=== PATIENT | female | born 1970 | race Caucasian/White ===

== ENCOUNTER 2019-09-14 19:59 | Emergency (ER) | payer SELFPAY ==
[~2019-09-14 19:59] MED LIST: Iopamidol-370 76% 500 ML 1 ML ONE
[2019-09-14 21:20] LABS: Mean Corpuscular HGB CONC 32.6 g/dL (32.0-36.0); Mean Corpuscular Hemoglobin 30.5 pg (27.0-31.0); Mean Corpuscular Volume 93.5 fL (78.0-98.0); Mean Platelet Volume 7.3 fL (7.4-10.4); Platelet Count 296 thou/uL (130-400); RBC Distribution Width 12.5 % (11.5-14.5); Red Blood Cell (RBC) Count 4.26 mill/uL (4.20-5.40); White Blood Cell (WBC) Count 9.4 thou/uL (4.8-10.8)
[2019-09-14 21:43] LABS: ALT (SGPT) 17 U/L (8-55); AST (SGOT) 16 U/L (5-34); Albumin 3.6 g/dL (3.5-5.0); Alkaline Phosphatase 94 U/L (40-110); Anion Gap 12 mmol/L (10-20); BUN (Urea Nitrogen) 22 mg/dL (7.0-18.7); Bilirubin, Total Less than 0.2 mg/dL (0.2-1.2); Calc. Creatinine Clearance 0 mL/min (70-130); Calcium 8.8 mg/dL (7.8-10.44); Carbon Dioxide 23 mmol/L (22-29); Chloride 106 mmol/L (98-107); Estimated GFR-MDRD 74; Glucose 102 mg/dL (70-105); Lipase 33 U/L (8-78); Potassium 3.8 mmol/L (3.5-5.1); Protein, Total 6.6 g/dL (6.0-8.3); Sodium 137 mmol/L (136-145)
[2019-09-14 21:45] LABS: Bacteria/HPF None Seen HPF (None Seen); Bilirubin Negative (Negative); Blood, Urine Trace (Negative); Clarity Clear (Clear); Glucose, Urine (Dipstick) Normal (Negative); Leukocyte Negative Leu/uL (Negative); Nitrite Negative (Negative); Protein, Urine (Dipstick) Negative (Neg-Trace); RBC/HPF 0-3 HPF (0-3); Squamous Epithelial 0-3 HPF (0-3); Urobilinogen Normal mg/dL (Less than 2)
[2019-09-14 21:54] LABS: Band 16 % (5-11); Eosinophils 1 % (0-10); Lymphocytes 38 % (21-51); MDiff Complete? YES; Monocytes 13 % (0-10); Neutrophil 31 % (42-75); Platelet Morphology Comment Appears Adequate; RBC Morphology Normal; Reactive Lymphocytes 1 % (0-10)
--- NOTE | 2019-09-15 10:38 | ULT ---
TRANSABDOMINAL TRANSVAGINAL PELVIC UTLRASOUND: INDICATION: Pelvic pain with pain predominantly in the left lower quadrant with pain upon urination and constipat ion. TECHNIQUE: Morales scale, color Doppler, and spectral Doppler images were obtained of the pelvis via a transabdomin al transvaginal approach. FINDINGS: The uterus measures 7.9 x 4.3 x 6.1 cm. No focal uterine mass is evident. Endometrial stripe was 1. 2 cm. The right ovary measured 2.8 x 2.4 x 3.2 cm. The left ovary measures 2.8 x 3.6 x 2.2 cm. Normal mel w is seen to both ovaries. Mild free fluid is seen within the cul-de-sac. In the region in the inguinal regions bilaterally, there are small nonpathologic-appearing lymph node s. IMPRESSION: 1. No definite acute sonographic abnormality within the pelvis. 2. Endometrial stripe of 1.2 cm, upper limits of normal for a premenopausal female. Recommend corre lation for phase of menstruation. 3. Nonspecific small amount of free fluid in the pelvis can be physiologic in nature. POS: BH
--- NOTE | 2019-09-15 10:53 | CT ---
CT OF THE PELVIS WITH IV CONTRAST: INDICATION: A 49-YEAR-OLD FEMALE WITH LEFT LOWER QUADRANT ABDOMINAL PAIN AND LEFT LOWER QUADRANT MASS FOR THE LAS T FEW WEEKS WITH WORSENING TODAY. FINDINGS: Unopacified large and small bowel are unremarkable-appearing. There is a normal appendix in the righ t lower quadrant. There is an involuting cyst within the right adnexa measuring 1.3 cm. This was no t well seen on the comparison pelvic ultrasound performed earlier at 9:13 p.m. Visualized aspects of the left adnexa, uterus, bladder, rectum, and perirectal soft tissues are unremarkable-appearing. T here is mild free fluid in the pelvis. There are mild vascular calcifications involving the abdominopelvic vasculature. No definite acute osseous abnormality is evident. No overt lymphadenopathy is evident. IMPRESSION: 1. Suspected involuting cyst within the right adnexa. 2. Mild free fluid in the pelvis may be physiologic. 3. No definite lymphadenopathy or visible pelvic mass identified. 4. Normal appendix. POS: BH
== END 2019-09-15 01:11 | disposition home or self-care (01) ==
LOC: MERGE 19:59 → ERS 19:59
DX: R19.04 Left lower quadrant abdominal swelling, mass and lump (principal); F17.210 Nicotine dependence, cigarettes, uncomplicated
CPT/HCPCS: 36415; 72193; 76856; 80053; 81003; 81015; 83690; 85025; 87086; Q9967

== ENCOUNTER 2022-08-29 21:49 | Observation (INO) | payer OTHER, SELFPAY ==
[~2022-08-29 21:49] MED LIST changes: -Iopamidol-370 76% 500 ML 1 ML ONE; +Iopamidol-370 76% 500 ML MDV (1 ML CHARGE) ONE
[2022-08-29 22:23] LABS: #Eosinphils 0.2 thou/uL (0.0-0.7); #Lymphocytes 1.6 thou/uL (1.20-3.40); #Neutrophils 8.6 thou/uL (1.40-6.50); %Basophils 0.4 % (0.0-1.0); %Eosinophils 1.3 % (0.0-10.0); %Lymphocytes 14.3 % (21.0-51.0); %Monocytes 9.1 % (0.0-10.0); %Neutrophils 74.9 % (42.0-75.0); Hemoglobin 12.6 g/dL (12.0-16.0); Mean Corpuscular HGB CONC 34.1 g/dL (32.0-36.0); Mean Corpuscular Hemoglobin 31.2 pg (27.0-31.0); Mean Corpuscular Volume 91.5 fl (78.0-98.0); Mean Platelet Volume 7.2 fL (7.4-10.4); Platelet Count 311 10x3/uL (130-400); Red Blood Cell (RBC) Count 4.03 mill/uL (4.20-5.40); White Blood Cell (WBC) Count 11.4 10x3/uL (4.8-10.8)
[2022-08-29 22:44] LABS: ALT (SGPT) 15 U/L (8-55); AST (SGOT) 19 U/L (5-34); Albumin 3.8 g/dL (3.5-5.0); Alkaline Phosphatase 76 U/L (40-110); Anion Gap 15 mmol/L (10-20); BUN (Urea Nitrogen) 6 mg/dL (7.0-18.7); Bilirubin, Total 0.2 mg/dL (0.2-1.2); Calc. Creatinine Clearance 0 mL/min (70-130); Calcium 8.5 mg/dL (7.8-10.44); Carbon Dioxide 21 mmol/L (22-29); Chloride 100 mmol/L (98-107); Estimated GFR 102; Globulin 2.9 g/dL (2.4-3.5); Glucose 128 mg/dL (70-105); Potassium 3.5 mmol/L (3.5-5.1); Protein, Total 6.7 g/dL (6.0-8.3); Sodium 132 mmol/L (136-145)
[2022-08-29] MEDS ORDERED: Morphine 4 MG/ML VIAL ONE (22:48)
[2022-08-29 23:06] LABS: CKMB 5.4 ng/mL (0-6.6)
[2022-08-30] MEDS ORDERED: Nitroglycerin 0.4 MG TAB 1 EACH ONE (00:28)
[2022-08-30] MEDS ORDERED: Aspirin Chewable 81 MG TAB ONE (00:28)
[2022-08-30] MEDS ORDERED: Thiamine HCl 100 MG, Folic Acid 1 MG in Dextrose 5 %-0.45 % NaCl 1,000 ML IVPB SCH (00:30)
[2022-08-30 00:55] LABS: Bilirubin Negative (Negative); Blood, Urine Negative (Negative); Clarity Clear (Clear); Glucose, Urine (Dipstick) Normal (Negative); Ketone, Urine Negative (Negative); Leukocyte Negative Leu/uL (Negative); Nitrite Negative (Negative); Protein, Urine (Dipstick) Negative (Neg-Trace); Urobilinogen Normal mg/dL (Less than 2); pH, Urine 7.5 (5.0-9.0)
[2022-08-30] MEDS ORDERED: Acetaminophen 325 MG TAB PO PRN (01:18)
[2022-08-30] MEDS ORDERED: Nitroglycerin 2% Ointment 1 INCH/1 GM Packet ONE (01:18)
[2022-08-30] MEDS ORDERED: Nitroglycerin 0.4 MG TAB (25 Tab Bottle) SL PRN (01:18)
[2022-08-30] MEDS ORDERED: Ketorolac Tromethamine 30 MG/ML VIAL ONE (01:18)
[2022-08-30] MEDS ORDERED: Ondansetron PF 4 MG/2 ML Vial IVP PRN (01:18)
[2022-08-30] MEDS ORDERED: Morphine 4 MG/ML VIAL SLOW IVP PRN (01:53)
[2022-08-30 02:14] LABS: Troponin I 0.122 ng/mL (< 0.028)
[2022-08-30 02:15] LABS: Amphetamine Detected (NotDetected); Barbiturates Screen Not Detected (NotDetected); Benzodiazepine Screen Not Detected (NotDetected); Cocaine Metabolite Screen Not Detected (NotDetected); Methadone Not Detected (NotDetected); Methamphetamine Detected (NotDetected); Opiate Screen Detected (NotDetected); Oxycodone Screen Not Detected (NotDetected); Phencyclidine (PCP) Not Detected (NotDetected); THC/Cannabinoid Screen Detected (NotDetected); Tricyclic Screen Not Detected (NotDetected)
[2022-08-30] MEDS ORDERED: Labetalol HCl 100 MG/20 ML VIAL SLOW IVP SCH ×2 (02:30→03:30)
[2022-08-30 02:33] VITALS: BMI 23.8
[2022-08-30] MEDS ORDERED: Labetalol HCl 100 MG/20 ML VIAL ONE (02:39)
[2022-08-30] MEDS ORDERED: HYDROmorphone 0.5 MG/0.5 ML SYRINGE ONE (02:39)
[2022-08-30] MEDS ORDERED: HYDROmorphone 0.5 MG/0.5 ML SYRINGE SLOW IVP SCH (02:45)
[2022-08-30] MEDS ORDERED: niCARdipine 25 MG/10 ML SDV ONE (04:12)
[2022-08-30] MEDS ORDERED: niCARdipine 25 MG in Sodium Chloride 0.9% 250 ML 250 ML IVPB SCH ×2 (04:15→04:30)
[2022-08-30 05:34] LABS: #Basophils 0.1 thou/uL (0.0-0.2); #Eosinphils 0.3 thou/uL (0.0-0.7); #Lymphocytes 2.3 thou/uL (1.20-3.40); #Monocytes 1.1 thou/uL (0.11-0.59); #Neutrophils 6.3 thou/uL (1.40-6.50); %Basophils 0.6 % (0.0-1.0); %Eosinophils 2.9 % (0.0-10.0); %Lymphocytes 23.3 % (21.0-51.0); %Monocytes 11.1 % (0.0-10.0); %Neutrophils 62.2 % (42.0-75.0); Mean Corpuscular Hemoglobin 30.3 pg (27.0-31.0); Mean Corpuscular Volume 91.7 fl (78.0-98.0); Mean Platelet Volume 7.5 fL (7.4-10.4); Platelet Count 323 10x3/uL (130-400); Red Blood Cell (RBC) Count 4.31 mill/uL (4.20-5.40)
[2022-08-30 05:47] LABS: Cardiac Risk 2.4 (Less than 4.5)
[2022-08-30 05:52] LABS: Troponin I 0.135 ng/mL (< 0.028)
[2022-08-30 05:53] LABS: Magnesium 1.7 mg/dL (1.6-2.6)
[2022-08-30 05:54] LABS: Anion Gap 10 mmol/L (10-20); BUN (Urea Nitrogen) 4 mg/dL (7.0-18.7); Calc. Creatinine Clearance 103 mL/min (70-130); Calcium 8.8 mg/dL (7.8-10.44); Carbon Dioxide 26 mmol/L (22-29); Chloride 100 mmol/L (98-107); Estimated GFR 106; Glucose 128 mg/dL (70-105); Potassium 3.1 mmol/L (3.5-5.1); Sodium 133 mmol/L (136-145)
[2022-08-30] MEDS ORDERED: hydrALAZINE 20 MG/ML VIAL ONE (06:00)
[2022-08-30] MEDS ORDERED: hydrALAZINE 20 MG/ML VIAL SLOW IVP SCH (06:00)
[2022-08-30 06:02] LABS: Hemoglobin A1c 5.1 % (4.0-6.0)
[2022-08-30] MEDS ORDERED: Magnesium Sulfate 2 GM in Sodium Chloride 0.9% 100 ML IVPB SCH (07:30)
[2022-08-30] MEDS ORDERED: Potassium Chloride 20 MEQ TAB PO SCH ×2 (07:30→17:00)
[2022-08-30] MEDS ORDERED: Magnesium 2 GM/50 ML(in water) 2 GM in Premix Bag 1 BAG IVPB SCH (07:30)
[2022-08-30] MEDS ORDERED: cloNIDine 0.1 MG TAB PO PRN ×2 (08:04→09:15)
[2022-08-30] MEDS ORDERED: Electrolyte Replacement Protocol 1 EACH FS SCH (08:15)
[2022-08-30] MEDS ORDERED: Folic Acid 1 MG TAB ONE (08:25)
[2022-08-30] MEDS ORDERED: Amlodipine 5 MG TAB ONE (08:25)
[2022-08-30] MEDS ORDERED: Magnesium 2 GM/50 ML BAG (IN WATER) ONE (08:25)
[2022-08-30] MEDS ORDERED: Multivitamin W/ Minerals 1 TAB ONE (08:25)
[2022-08-30] MEDS ORDERED: Potassium Chloride 20 MEQ TAB ONE (08:25)
[2022-08-30] MEDS ORDERED: Lisinopril 10 MG TAB PO SCH (09:00)
[2022-08-30] MEDS ORDERED: Amlodipine 5 MG TAB PO SCH (09:00)
[2022-08-30] MEDS ORDERED: Lisinopril 20 MG TAB PO SCH (09:00)
[2022-08-30 09:08] LABS: Phosphorus 2.8 mg/dL (2.3-4.7)
[2022-08-30] MEDS ORDERED: Lisinopril 5 MG TAB PO SCH (09:15)
[2022-08-30] MEDS ORDERED: NIFEdipine XL 30 MG TAB PO SCH (09:15)
[2022-08-30] MEDS ORDERED: Acetaminophen 325 MG TAB ONE (09:35)
[2022-08-30] MEDS ORDERED: cloNIDine 0.1 MG TAB ONE (10:07)
[2022-08-30] MEDS: Folic Acid 1 MG TAB PO SCH (10:11)
[2022-08-30] MEDS: Polyethylene Glycol 3350 17 GM Packet PO SCH (10:11)
[2022-08-30] MEDS: Docusate 100 MG CAP PO SCH ×2 (10:11→21:24)
[2022-08-30] MEDS: Multivit, Therapeutic 1 TAB PO SCH (10:11)
[2022-08-30] MEDS ORDERED: Ibuprofen 200 MG TAB PO SCH (18:45)
[2022-08-30] MEDS: Senokot S 8.6-50 MG TAB PO SCH (21:24)
[2022-08-30] MEDS: Lisinopril 5 MG TAB PO SCH (21:24)
[2022-08-31 05:27] LABS: #Basophils 0.1 thou/uL (0.0-0.2); #Eosinphils 0.4 thou/uL (0.0-0.7); #Lymphocytes 2.1 thou/uL (1.20-3.40); #Monocytes 1.1 thou/uL (0.11-0.59); #Neutrophils 4.1 thou/uL (1.40-6.50); %Basophils 0.9 % (0.0-1.0); %Eosinophils 4.8 % (0.0-10.0); %Lymphocytes 27.4 % (21.0-51.0); %Monocytes 14.2 % (0.0-10.0); %Neutrophils 52.7 % (42.0-75.0); Hemoglobin 14.8 g/dL (12.0-16.0); Mean Corpuscular HGB CONC 34.2 g/dL (32.0-36.0); Mean Corpuscular Hemoglobin 31.3 pg (27.0-31.0); Mean Corpuscular Volume 91.6 fl (78.0-98.0); Mean Platelet Volume 7.6 fL (7.4-10.4); Platelet Count 310 10x3/uL (130-400); RBC Distribution Width 13.2 % (11.5-14.5); Red Blood Cell (RBC) Count 4.74 mill/uL (4.20-5.40); White Blood Cell (WBC) Count 7.8 10x3/uL (4.8-10.8)
[2022-08-31 06:20] LABS: Phosphorus 3.8 mg/dL (2.3-4.7)
[2022-08-31 06:40] LABS: Anion Gap 13 mmol/L (10-20); BUN (Urea Nitrogen) 13 mg/dL (7.0-18.7); Calc. Creatinine Clearance 78 mL/min (70-130); Calcium 8.9 mg/dL (7.8-10.44); Carbon Dioxide 22 mmol/L (22-29); Chloride 104 mmol/L (98-107); Estimated GFR 80; Glucose 127 mg/dL (70-105); Magnesium 1.9 mg/dL (1.6-2.6); Potassium 3.7 mmol/L (3.5-5.1); Sodium 135 mmol/L (136-145)
[2022-08-31 06:44] LABS: Troponin I 0.273 ng/mL (< 0.028)
[2022-08-31 07:52] VITALS: BP 164/92; TEMP 98
[2022-08-31] MEDS: Lisinopril 5 MG TAB PO SCH (07:56)
[2022-08-31] MEDS: Polyethylene Glycol 3350 17 GM Packet PO SCH (07:56)
[2022-08-31] MEDS: Multivit, Therapeutic 1 TAB PO SCH (07:57)
[2022-08-31] MEDS: Senokot S 8.6-50 MG TAB PO SCH (07:57)
[2022-08-31] MEDS: Folic Acid 1 MG TAB PO SCH (07:57)
[2022-08-31] MEDS: Docusate 100 MG CAP PO SCH (07:58)
[2022-08-31] MEDS ORDERED: Magnesium 2 GM/50 ML(in water) 2 GM in Premix Bag 1 BAG IVPB SCH (08:00)
[2022-08-31] MEDS ORDERED: Aspirin 81 mg Enteric Coated Tablet PO SCH (09:00)
[2022-08-31] MEDS ORDERED: NIFEdipine XL 30 MG TAB PO SCH (09:00)
== END 2022-08-31 12:15 | disposition home or self-care (01) ==
LOC: ERS 21:49 → ERHOLD 08-30 01:08 → 2NO 08-30 02:16 → ERHOLD 08-30 02:29 → CCU 08-30 07:14 → 2SW 08-30 15:14
PROVIDERS: ADMIT Internal Medicine; ATTEND Internal Medicine
DX: R07.82 Intercostal pain (principal); K59.01 Slow transit constipation; M79.602 Pain in left arm; F15.10 Other stimulant abuse, uncomplicated; F12.10 Cannabis abuse, uncomplicated; F11.10 Opioid abuse, uncomplicated; I10 Essential (primary) hypertension; F17.210 Nicotine dependence, cigarettes, uncomplicated; J98.11 Atelectasis; K40.90 Unilateral inguinal hernia, without obstruction or gangrene, not specified as recurrent; I08.1 Rheumatic disorders of both mitral and tricuspid valves; Z88.5 Allergy status to narcotic agent
CPT/HCPCS: 36415; 71045; 71260; 74177; 80048; 80053; 80061; 80306; 81003; 82553; 83036; 83735; 84100; 84484; 85025; 85652; 86140; 93005; 93306; 96374; 96375; G0378; J0360; J1170; J1885; J2270; J3411; J3475; J7042; Q9967

== ENCOUNTER 2022-12-10 15:17 | Outpatient (CLI) | payer OTHER ==
[2022-12-10 16:45] LABS: #Basophils 0.1 10x3/uL (0.0-0.2); #Eosinphils 0.4 10x3/uL (0.0-0.5); #Monocytes 1.3 10x3/uL (0.0-1.1); #Neutrophils 4.1 10x3/uL (1.5-8.4); %Basophils 0.6 % (0.0-2.0); %Eosinophils 4.3 % (0.0-6.0); %Lymphocytes 28.7 % (18.0-47.0); %Monocytes 15.8 % (0.0-10.0); %Neutrophils 50.5 % (40.0-75.0); Hematocrit 36.9 % (34.9-44.5); Hemoglobin 12.1 g/dL (12.0-15.5); Mean Corpuscular HGB CONC 32.8 g/dL (32.0-36.0); Mean Corpuscular Volume 88.5 fl (81.6-98.3); Mean Platelet Volume 10.8 fl (7.4-10.4); Platelet Count 344 10x3/uL (150-450); RBC Distribution Width 15.1 % (11.5-14.5); Red Blood Cell (RBC) Count 4.17 10x6/uL (3.90-5.03); White Blood Cell (WBC) Count 8.2 10x3/uL (3.5-10.5)
[2022-12-10 17:14] LABS: ALT (SGPT) 16 U/L (8-55); AST (SGOT) 19 U/L (5-34); Albumin 3.8 g/dL (3.5-5.0); Alkaline Phosphatase 67 U/L (40-110); Anion Gap 13 mmol/L (10-20); BUN (Urea Nitrogen) 12 mg/dL (7.0-18.7); Bilirubin, Total 0.2 mg/dL (0.2-1.2); Calc. Creatinine Clearance 0 mL/min (70-130); Carbon Dioxide 28 mmol/L (22-29); Chloride 106 mmol/L (98-107); Estimated GFR 65; Globulin 2.8 g/dL (2.4-3.5); Glucose 71 mg/dL (70-105); Potassium 4.1 mmol/L (3.5-5.1); Protein, Total 6.6 g/dL (6.0-8.3); Sodium 143 mmol/L (136-145)
== END 2022-12-10 15:18 | disposition home or self-care (01) ==
LOC: LABBT 15:17
PROVIDERS: ATTEND Surgery
DX: Z01.818 Encounter for other preprocedural examination (principal); K40.20 Bilateral inguinal hernia, without obstruction or gangrene, not specified as recurrent
CPT/HCPCS: 80053; 85025; 93005; 93010

== ENCOUNTER 2023-01-01 22:53 | Inpatient (IN) | payer OTHER ==
[2023-01-01] MEDS ORDERED: Acetaminophen 500 MG TAB ONE ×2 (23:32→23:34)
[2023-01-02] MEDS ORDERED: Azithromycin 500 MG VIAL ONE (00:17)
[2023-01-02] MEDS ORDERED: cefTRIAXone (ROCEPHIN) 2 GM VIAL ONE (00:17)
[2023-01-02 00:32] LABS: SARS-CoV-2 NAA Rapid Test Not Detected (NotDetected)
[2023-01-02 00:37] LABS: #Basophils 0.1 thou/uL (0.0-0.2); #Eosinphils 0.4 thou/uL (0.0-0.7); #Monocytes 1.1 thou/uL (0.11-0.59); #Neutrophils 4.2 thou/uL (1.40-6.50); %Basophils 0.6 % (0.0-1.0); %Eosinophils 5.4 % (0.0-10.0); %Lymphocytes 28.4 % (21.0-51.0); %Monocytes 14.1 % (0.0-10.0); %Neutrophils 51.3 % (42.0-75.0); Hematocrit 33.2 % (36.0-47.0); Hemoglobin 10.3 g/dL (12.0-16.0); Mean Corpuscular Hemoglobin 28.9 pg (27.0-31.0); Mean Corpuscular Volume 93.3 fl (78.0-98.0); Mean Platelet Volume 10.6 fL (7.4-10.4); Platelet Count 278 10x3/uL (130-400); RBC Distribution Width 14.9 % (11.5-14.5); Red Blood Cell (RBC) Count 3.56 mill/uL (4.20-5.40); White Blood Cell (WBC) Count 8.1 10x3/uL (4.8-10.8)
[2023-01-02 01:00] LABS: ALT (SGPT) 8 U/L (8-55); AST (SGOT) 12 U/L (5-34); Alkaline Phosphatase 70 U/L (40-110); Anion Gap 13 mmol/L (10-20); BUN (Urea Nitrogen) 9 mg/dL (7.0-18.7); Bilirubin, Total 0.3 mg/dL (0.2-1.2); Calc. Creatinine Clearance 0 mL/min (70-130); Calcium 8.6 mg/dL (7.8-10.44); Carbon Dioxide 19 mmol/L (22-29); Chloride 106 mmol/L (98-107); Estimated GFR 100; Globulin 2.9 g/dL (2.4-3.5); Glucose 100 mg/dL (70-105); Potassium 3.1 mmol/L (3.5-5.1); Protein, Total 5.9 g/dL (6.0-8.3); Sodium 135 mmol/L (136-145)
[2023-01-02 01:03] LABS: Troponin I 0.069 ng/mL (< 0.028)
[2023-01-02] MEDS ORDERED: Aspirin Chewable 81 MG TAB ONE (02:01)
[2023-01-02] MEDS ORDERED: Acetaminophen 325 MG TAB PO PRN (04:15)
[2023-01-02] MEDS ORDERED: Ondansetron PF 4 MG/2 ML Vial IVP PRN (04:15)
[2023-01-02] MEDS ORDERED: Ondansetron ODT 4 MG TAB SL PRN (04:15)
[2023-01-02] MEDS ORDERED: Ipratropium/Albuterol 3 ML NEB NEB PRN (04:50)
[2023-01-02 05:08] LABS: Actual Bicarbonate (HCO3a) 21.8 mEq/L (22-28); Base Excess (BEa) -1.8 mEq/L (-2.0 to +3.0); CO2 Tension 32.8 mmHg (35.0-45.0); Calcium, Ionized (arterial) 1.12 mmol/L (1.12-1.30); Carboxyhemoglobin (COHb) 1.1 gm% (0.0-3.0); Hematocrit-ABG 33 % (36.0-47.0); Hemoglobin (Hb) 11.1 g/dL (12.0-16.0); O2 Tension (PaO2), arterial 86.9 mmHg (80.0-100.0); Potassium - ABG Lab 3.29 mmol/L (3.70-5.30)
[2023-01-02 05:10] LABS: Puncture Site RR
[2023-01-02 06:11] VITALS: BMI 23.1
[2023-01-02 06:14] LABS: Troponin I 0.083 ng/mL (< 0.028)
[2023-01-02] MEDS ORDERED: Electrolyte Replacement Protocol 1 EACH FS SCH (06:15)
[2023-01-02] MEDS ORDERED: Furosemide 40 MG/4 ML VIAL SLOW IVP SCH (06:30)
[2023-01-02 06:40] LABS: #Basophils 0.1 thou/uL (0.0-0.2); #Eosinphils 0.3 thou/uL (0.0-0.7); #Monocytes 0.9 thou/uL (0.11-0.59); #Neutrophils 5.1 thou/uL (1.40-6.50); %Basophils 0.6 % (0.0-1.0); %Eosinophils 3.3 % (0.0-10.0); %Lymphocytes 20.5 % (21.0-51.0); %Monocytes 11.4 % (0.0-10.0); %Neutrophils 63.9 % (42.0-75.0); Hematocrit 36.4 % (36.0-47.0); Hemoglobin 11.5 g/dL (12.0-16.0); Mean Corpuscular HGB CONC 31.6 g/dL (32.0-36.0); Mean Corpuscular Hemoglobin 28.6 pg (27.0-31.0); Mean Platelet Volume 10.3 fL (7.4-10.4); Platelet Count 286 10x3/uL (130-400); RBC Distribution Width 14.8 % (11.5-14.5); Red Blood Cell (RBC) Count 4.02 mill/uL (4.20-5.40)
[2023-01-02 06:45] LABS: Mean Corpuscular Volume 90.5 fl (78.0-98.0)
[2023-01-02] MEDS: Potassium Chloride 20 MEQ in Premix Bag 1 BAG IVPB SCH ×2 (06:55→11:03)
[2023-01-02 07:04] LABS: Anion Gap 13 mmol/L (10-20); BUN (Urea Nitrogen) 9 mg/dL (7.0-18.7); Calc. Creatinine Clearance 94 mL/min (70-130); Calcium 8.4 mg/dL (7.8-10.44); Carbon Dioxide 18 mmol/L (22-29); Chloride 108 mmol/L (98-107); Estimated GFR 104; Glucose 106 mg/dL (70-105); Magnesium 1.7 mg/dL (1.6-2.6); Potassium 3.4 mmol/L (3.5-5.1); Sodium 136 mmol/L (136-145)
[2023-01-02] MEDS: Ipratropium/Albuterol 3 ML NEB NEB SCH ×5 (07:57→22:30)
[2023-01-02] MEDS ORDERED: Magnesium 2 GM/50 ML(in water) 2 GM in Premix Bag 1 BAG IVPB SCH (08:00)
[2023-01-02] MEDS ORDERED: Vancomycin 1.5 GRAM/300 ML BAG 1.5 GM in Premix Bag 1 BAG IVPB SCH (08:00)
[2023-01-02] MEDS ORDERED: Aspirin Chewable 81 MG TAB PO SCH (08:13)
[2023-01-02] MEDS ORDERED: dilTIAZem 125 MG in Sodium Chloride 0.9% 100 ML IVPB SCH (09:00)
[2023-01-02] MEDS ORDERED: Cefepime 1 GM in Sodium Chloride 0.9% 100 ML IVPB SCH (09:00)
[2023-01-02] MEDS ORDERED: Iopamidol-370 76% 500 ML MDV (1 ML CHARGE) ONE (10:58)
[2023-01-02] MEDS: Famotidine/PF 20 mg/2ml Vial SLOW IVP SCH ×2 (11:03→20:40)
[2023-01-02] MEDS: Clindamycin 150 MG CAP PO SCH ×3 (11:04→23:50)
[2023-01-02 11:22] LABS: Troponin I 0.073 ng/mL (< 0.028)
[2023-01-02] MEDS: Furosemide 40 MG/4 ML VIAL SLOW IVP SCH (13:27)
[2023-01-02] MEDS ORDERED: dilTIAZem 30 MG TAB PO SCH (13:30)
[2023-01-02 14:34] LABS: Bacteria/HPF None Seen HPF (None Seen); Bilirubin Negative (Negative); Blood, Urine Trace (Negative); CAUTI Indications for Culture Fever or rigors; Clarity Clear (Clear); Glucose, Urine (Dipstick) Normal (Negative); Ketone, Urine Negative (Negative); Leukocyte 25 Leu/uL (Negative); Nitrite Negative (Negative); Protein, Urine (Dipstick) Negative (Neg-Trace); Specific Gravity, Urine 1.009 (1.002-1.036); Squamous Epithelial 0-3 HPF (0-3); Urobilinogen Normal mg/dL (Less than 2); WBC/HPF 0-3 HPF (0-3); pH, Urine 6.5 (5.0-9.0)
[2023-01-02 14:36] LABS: Urine Culture Reflex No No
[2023-01-02 14:41] LABS: Amphetamine Detected (NotDetected); Barbiturates Screen Not Detected (NotDetected); Benzodiazepine Screen Not Detected (NotDetected); Cocaine Metabolite Screen Not Detected (NotDetected); Methadone Not Detected (NotDetected); Methamphetamine Detected (NotDetected); Opiate Screen Not Detected (NotDetected); Oxycodone Screen Not Detected (NotDetected); Phencyclidine (PCP) Not Detected (NotDetected); THC/Cannabinoid Screen Not Detected (NotDetected); Tricyclic Screen Not Detected (NotDetected)
[2023-01-02 14:48] LABS: Legionella Urinary Ag Negative (Negative); Strep pneumo Urine Ag NEGATIVE (NEGATIVE)
[2023-01-02] MEDS: Potassium Bicarbonate/Cit Ac 20 MEQ TAB PO SCH (17:54)
[2023-01-02] MEDS: dilTIAZem 30 MG TAB PO SCH ×2 (17:54→20:40)
[2023-01-02] MEDS ORDERED: Vancomycin 1 GM in Premix Bag 1 BAG IVPB SCH (20:00)
[2023-01-02] MEDS: cefTRIAXone\\ROCEPHIN 2 GM in Sodium Chloride 0.9% 100 ML IVPB SCH (20:42)
[2023-01-02] MEDS: Acetaminophen 325 MG TAB PO PRN (20:42)
[2023-01-03] MEDS: Ipratropium/Albuterol 3 ML NEB NEB SCH ×6 (02:31→22:33)
[2023-01-03 04:07] LABS: #Basophils 0.1 thou/uL (0.0-0.2); #Eosinphils 0.2 thou/uL (0.0-0.7); #Monocytes 1.1 thou/uL (0.11-0.59); #Neutrophils 5.7 thou/uL (1.40-6.50); %Basophils 0.7 % (0.0-1.0); %Eosinophils 2.5 % (0.0-10.0); %Lymphocytes 20.1 % (21.0-51.0); %Monocytes 12.9 % (0.0-10.0); %Neutrophils 63.6 % (42.0-75.0); Hematocrit 36.8 % (36.0-47.0); Hemoglobin 12.4 g/dL (12.0-16.0); Mean Corpuscular HGB CONC 33.7 g/dL (32.0-36.0); Mean Corpuscular Hemoglobin 28.8 pg (27.0-31.0); Mean Platelet Volume 10.3 fL (7.4-10.4); Platelet Count 346 10x3/uL (130-400); RBC Distribution Width 14.7 % (11.5-14.5); Red Blood Cell (RBC) Count 4.31 mill/uL (4.20-5.40); White Blood Cell (WBC) Count 8.9 10x3/uL (4.8-10.8)
[2023-01-03 04:15] LABS: Mean Corpuscular Volume 85.4 fl (78.0-98.0)
[2023-01-03 04:36] LABS: ALT (SGPT) 11 U/L (8-55); AST (SGOT) 12 U/L (5-34); Albumin 3.4 g/dL (3.5-5.0); Alkaline Phosphatase 88 U/L (40-110); Anion Gap 12 mmol/L (10-20); BUN (Urea Nitrogen) 13 mg/dL (7.0-18.7); Bilirubin, Total 0.3 mg/dL (0.2-1.2); Calc. Creatinine Clearance 67 mL/min (70-130); Carbon Dioxide 27 mmol/L (22-29); Chloride 101 mmol/L (98-107); Estimated GFR 69; Globulin 3.2 g/dL (2.4-3.5); Glucose 124 mg/dL (70-105); Potassium 3.2 mmol/L (3.5-5.1); Protein, Total 6.6 g/dL (6.0-8.3); Sodium 137 mmol/L (136-145)
[2023-01-03 05:01] LABS: Magnesium 1.9 mg/dL (1.6-2.6)
[2023-01-03] MEDS: Acetaminophen 325 MG TAB PO PRN ×3 (06:39→21:32)
[2023-01-03] MEDS: Furosemide 40 MG/4 ML VIAL SLOW IVP SCH ×2 (06:39→13:33)
[2023-01-03] MEDS: Clindamycin 150 MG CAP PO SCH (06:39)
[2023-01-03] MEDS ORDERED: Potassium Chloride 20 MEQ TAB PO SCH (06:45)
[2023-01-03] MEDS ORDERED: Magnesium 2 GM/50 ML(in water) 2 GM in Premix Bag 1 BAG IVPB SCH (06:45)
[2023-01-03] MEDS ORDERED: Electrolyte Replacement Protocol FS PRN (06:45)
[2023-01-03] MEDS: Famotidine/PF 20 mg/2ml Vial SLOW IVP SCH ×2 (08:18→21:32)
[2023-01-03] MEDS: Potassium Bicarbonate/Cit Ac 20 MEQ TAB PO SCH ×2 (08:18→16:48)
[2023-01-03] MEDS: dilTIAZem 30 MG TAB PO SCH ×4 (08:18→21:31)
[2023-01-03] MEDS ORDERED: Phenylephrine 10 MG/ML VIAL ONE (08:20)
[2023-01-03] MEDS ORDERED: Azithromycin 250 MG TAB PO SCH ×2 (12:00→13:30)
[2023-01-03] MEDS: cefTRIAXone\\ROCEPHIN 2 GM in Sodium Chloride 0.9% 100 ML IVPB SCH (21:30)
[2023-01-04] MEDS ORDERED: hydrALAZINE 20 MG/ML VIAL SLOW IVP SCH (01:00)
[2023-01-04] MEDS: Metoprolol Tartrate 5 MG/5 ML VIAL IVP PRN (01:04)
[2023-01-04] MEDS: Ipratropium/Albuterol 3 ML NEB NEB SCH ×6 (03:43→21:41)
[2023-01-04] MEDS: Furosemide 40 MG/4 ML VIAL SLOW IVP SCH ×2 (06:43→14:27)
[2023-01-04] MEDS ORDERED: Magnesium 2 GM/50 ML(in water) 2 GM in Premix Bag 1 BAG IVPB SCH (06:45)
[2023-01-04] MEDS: dilTIAZem 30 MG TAB PO SCH ×4 (08:21→21:13)
[2023-01-04] MEDS: Famotidine/PF 20 mg/2ml Vial SLOW IVP SCH ×2 (08:21→21:13)
[2023-01-04] MEDS: Potassium Bicarbonate/Cit Ac 20 MEQ TAB PO SCH ×2 (08:44→17:17)
[2023-01-04] MEDS ORDERED: Azithromycin 250 MG TAB PO SCH (09:00)
[2023-01-04] MEDS ORDERED: Gabapentin 100 MG CAP PO SCH (21:30)
[2023-01-04] MEDS: Acetaminophen 325 MG TAB PO PRN (21:30)
[2023-01-05] MEDS: Ipratropium/Albuterol 3 ML NEB NEB SCH ×6 (02:19→21:33)
[2023-01-05 04:02] LABS: #Basophils 0.1 thou/uL (0.0-0.2); #Eosinphils 0.5 thou/uL (0.0-0.7); #Monocytes 1.4 thou/uL (0.11-0.59); %Basophils 0.8 % (0.0-1.0); %Eosinophils 7.3 % (0.0-10.0); %Lymphocytes 31.5 % (21.0-51.0); %Monocytes 18.9 % (0.0-10.0); %Neutrophils 41.2 % (42.0-75.0); Hematocrit 41.9 % (36.0-47.0); Hemoglobin 13.8 g/dL (12.0-16.0); Mean Corpuscular HGB CONC 32.9 g/dL (32.0-36.0); Mean Corpuscular Hemoglobin 28.9 pg (27.0-31.0); Mean Corpuscular Volume 87.7 fl (78.0-98.0); Mean Platelet Volume 12.5 fL (7.4-10.4); Platelet Count 251 10x3/uL (130-400); RBC Distribution Width 14.7 % (11.5-14.5); Red Blood Cell (RBC) Count 4.78 mill/uL (4.20-5.40); White Blood Cell (WBC) Count 7.4 10x3/uL (4.8-10.8)
[2023-01-05 04:48] LABS: Chloride 98 mmol/L (98-107); Potassium 4.2 mmol/L (3.5-5.1); Sodium 130 mmol/L (136-145)
[2023-01-05 04:49] LABS: Calcium 9.6 mg/dL (7.8-10.44); Glucose 87 mg/dL (70-105)
[2023-01-05 04:51] LABS: Anion Gap 22 mmol/L (10-20); Carbon Dioxide 14 mmol/L (22-29)
[2023-01-05 04:53] LABS: Calc. Creatinine Clearance 47 mL/min (70-130); Estimated GFR 51
[2023-01-05 04:54] LABS: BUN (Urea Nitrogen) 22 mg/dL (7.0-18.7)
[2023-01-05] MEDS: Furosemide 40 MG/4 ML VIAL SLOW IVP SCH (06:20)
[2023-01-05] MEDS: Metoprolol Tartrate 5 MG/5 ML VIAL IVP PRN (06:25)
[2023-01-05] MEDS: dilTIAZem 30 MG TAB PO SCH ×3 (08:44→20:36)
[2023-01-05] MEDS: Famotidine/PF 20 mg/2ml Vial SLOW IVP SCH ×2 (08:44→20:36)
[2023-01-05] MEDS ORDERED: Magnesium 2 GM/50 ML(in water) 2 GM in Premix Bag 1 BAG IVPB SCH (09:00)
[2023-01-05] MEDS ORDERED: Sodium Chloride 0.9% 1,000 ML IV SCH (09:45)
[2023-01-05] MEDS ORDERED: Methocarbamol 500 MG TAB PO SCH (11:15)
[2023-01-05] MEDS ORDERED: dilTIAZem 30 MG TAB PO SCH (11:30)
[2023-01-05] MEDS: Methocarbamol 500 MG TAB PO SCH (20:36)
[2023-01-05] MEDS ORDERED: Ketorolac Tromethamine 30 MG/ML VIAL IVP SCH (22:00)
[2023-01-06] MEDS: Ipratropium/Albuterol 3 ML NEB NEB SCH ×3 (02:41→11:00)
[2023-01-06 04:09] LABS: #Basophils 0.1 thou/uL (0.0-0.2); #Eosinphils 0.6 thou/uL (0.0-0.7); #Neutrophils 2.3 thou/uL (1.40-6.50); %Lymphocytes 35.7 % (21.0-51.0); %Monocytes 15.8 % (0.0-10.0); %Neutrophils 38.3 % (42.0-75.0); Hematocrit 37.4 % (36.0-47.0); Hemoglobin 12.5 g/dL (12.0-16.0); Mean Corpuscular HGB CONC 33.4 g/dL (32.0-36.0); Mean Corpuscular Hemoglobin 28.5 pg (27.0-31.0); Mean Corpuscular Volume 85.4 fl (78.0-98.0); Platelet Count 387 10x3/uL (130-400); RBC Distribution Width 14.4 % (11.5-14.5); Red Blood Cell (RBC) Count 4.38 mill/uL (4.20-5.40); White Blood Cell (WBC) Count 6.1 10x3/uL (4.8-10.8)
[2023-01-06 04:35] LABS: Anion Gap 13 mmol/L (10-20); BUN (Urea Nitrogen) 30 mg/dL (7.0-18.7); Calc. Creatinine Clearance 42 mL/min (70-130); Calcium 8.9 mg/dL (7.8-10.44); Carbon Dioxide 26 mmol/L (22-29); Chloride 97 mmol/L (98-107); Estimated GFR 44; Glucose 100 mg/dL (70-105); Magnesium 2.1 mg/dL (1.6-2.6); Potassium 4.1 mmol/L (3.5-5.1); Sodium 132 mmol/L (136-145)
[2023-01-06] MEDS ORDERED: Furosemide 40 MG/4 ML VIAL SLOW IVP SCH (06:00)
[2023-01-06] MEDS: Famotidine/PF 20 mg/2ml Vial SLOW IVP SCH ×2 (08:47→21:03)
[2023-01-06] MEDS: dilTIAZem 30 MG TAB PO SCH ×4 (08:48→21:04)
[2023-01-06] MEDS: Methocarbamol 500 MG TAB PO SCH ×3 (08:48→21:06)
[2023-01-06] MEDS ORDERED: Sodium Chloride 0.9% 1,000 ML IV SCH (09:15)
[2023-01-06] MEDS ORDERED: hydrOXYzine 25 MG TAB PO SCH (10:30)
[2023-01-06] MEDS ORDERED: Sertraline 25 MG TAB PO SCH (14:00)
[2023-01-06] MEDS: Gabapentin 300 MG CAP PO SCH (21:04)
[2023-01-07 04:08] LABS: #Basophils 0.1 thou/uL (0.0-0.2); #Eosinphils 0.7 thou/uL (0.0-0.7); #Monocytes 0.9 thou/uL (0.11-0.59); #Neutrophils 2.2 thou/uL (1.40-6.50); %Basophils 0.9 % (0.0-1.0); %Eosinophils 11.7 % (0.0-10.0); %Lymphocytes 34.2 % (21.0-51.0); %Monocytes 15.4 % (0.0-10.0); %Neutrophils 37.6 % (42.0-75.0); Hematocrit 39.5 % (36.0-47.0); Mean Corpuscular HGB CONC 32.9 g/dL (32.0-36.0); Mean Corpuscular Hemoglobin 28.2 pg (27.0-31.0); Mean Corpuscular Volume 85.7 fl (78.0-98.0); Mean Platelet Volume 10.2 fL (7.4-10.4); Platelet Count 425 10x3/uL (130-400); RBC Distribution Width 14.5 % (11.5-14.5); Red Blood Cell (RBC) Count 4.61 mill/uL (4.20-5.40); White Blood Cell (WBC) Count 5.8 10x3/uL (4.8-10.8)
[2023-01-07 04:35] LABS: Anion Gap 12 mmol/L (10-20); BUN (Urea Nitrogen) 28 mg/dL (7.0-18.7); Calc. Creatinine Clearance 61 mL/min (70-130); Calcium 9.3 mg/dL (7.8-10.44); Carbon Dioxide 24 mmol/L (22-29); Chloride 102 mmol/L (98-107); Estimated GFR 68; Glucose 94 mg/dL (70-105); Potassium 3.9 mmol/L (3.5-5.1); Sodium 134 mmol/L (136-145)
[2023-01-07] MEDS: Sertraline 25 MG TAB PO SCH (09:07)
[2023-01-07] MEDS: Gabapentin 300 MG CAP PO SCH ×3 (09:07→20:55)
[2023-01-07] MEDS: dilTIAZem 30 MG TAB PO SCH (09:07)
[2023-01-07] MEDS: Famotidine/PF 20 mg/2ml Vial SLOW IVP SCH ×2 (09:08→20:55)
[2023-01-07] MEDS: Methocarbamol 500 MG TAB PO SCH ×3 (09:09→20:55)
[2023-01-07] MEDS ORDERED: Labetalol HCl 100 MG TAB PO SCH (10:02)
[2023-01-07 12:45] VITALS: BP 141/84
[2023-01-07 14:20] LABS: Free T4 (Free Thyroxine) 0.91 ng/dL (0.70-1.48)
[2023-01-07] MEDS: Labetalol HCl 100 MG TAB PO SCH (20:55)
[2023-01-08 03:57] LABS: #Basophils 0.1 thou/uL (0.0-0.2); #Eosinphils 0.6 thou/uL (0.0-0.7); #Monocytes 1.1 thou/uL (0.11-0.59); #Neutrophils 2.2 thou/uL (1.40-6.50); %Eosinophils 10.5 % (0.0-10.0); %Lymphocytes 33.2 % (21.0-51.0); %Monocytes 17.9 % (0.0-10.0); %Neutrophils 37.1 % (42.0-75.0); Hemoglobin 12.2 g/dL (12.0-16.0); Mean Corpuscular HGB CONC 32.1 g/dL (32.0-36.0); Mean Corpuscular Hemoglobin 28.3 pg (27.0-31.0); Mean Corpuscular Volume 88.2 fl (78.0-98.0); Mean Platelet Volume 9.9 fL (7.4-10.4); Platelet Count 392 10x3/uL (130-400); RBC Distribution Width 14.4 % (11.5-14.5); Red Blood Cell (RBC) Count 4.31 mill/uL (4.20-5.40)
[2023-01-08 04:19] LABS: Anion Gap 10 mmol/L (10-20); BUN (Urea Nitrogen) 24 mg/dL (7.0-18.7); Calc. Creatinine Clearance 72 mL/min (70-130); Calcium 9.4 mg/dL (7.8-10.44); Carbon Dioxide 25 mmol/L (22-29); Chloride 103 mmol/L (98-107); Estimated GFR 83; Glucose 94 mg/dL (70-105); Potassium 4.1 mmol/L (3.5-5.1); Sodium 134 mmol/L (136-145)
[2023-01-08] MEDS: Sertraline 25 MG TAB PO SCH (08:21)
[2023-01-08] MEDS: Labetalol HCl 100 MG TAB PO SCH (08:24)
[2023-01-08] MEDS: Methocarbamol 500 MG TAB PO SCH (08:25)
[2023-01-08] MEDS: Famotidine/PF 20 mg/2ml Vial SLOW IVP SCH (08:25)
[2023-01-08] MEDS ORDERED: dilTIAZem CD 180 MG CAP PO SCH (09:00)
[2023-01-08] MEDS ORDERED: Losartan/Hydrochlorothiazide 100 mg/25 mg Tablet PO SCH (09:00)
[2023-01-08] MEDS ORDERED: Dexamethasone 4 mg/ml Vial SLOW IVP SCH (09:00)
[2023-01-08] MEDS: Gabapentin 300 MG CAP PO SCH (11:46)
[2023-01-08 12:26] VITALS: TEMP 97.5
[2023-01-09] MEDS ORDERED: Dexamethasone 4 MG TAB PO SCH (09:00)
[2023-01-09 12:49] LABS: ANA Symphony (Qualitative) Negative (Negative); ANA Symphony (Quantitative) 0.4 Ratio (< 0.7 Negative); Scleroderma-70 IgG Antibody 1.1 EliAU/mL (<7 Negative); dsDNA IgG Antibody 6.1 IU/mL (<10 Negative)
== END 2023-01-08 12:30 | disposition home or self-care (01) | DRG 280 ==
LOC: ERS 22:53 → 2NO 01-02 02:38 → IMCU/EMU 01-02 06:27
PROVIDERS: ADMIT Hospitalist; ATTEND Hospitalist
PROC: 4A033R1 Measurement of Arterial Saturation, Peripheral, Percutaneous Approach (ICD-10-PCS; principal; 2023-01-02)
PROC: 5A09357 Assistance with Respiratory Ventilation, Less than 24 Consecutive Hours, Continuous Positive Airway Pressure (ICD-10-PCS; 2023-01-02)
DX: I11.0 Hypertensive heart disease with heart failure (principal); I21.A1 Myocardial infarction type 2; I26.99 Other pulmonary embolism without acute cor pulmonale; J18.9 Pneumonia, unspecified organism; J96.01 Acute respiratory failure with hypoxia; I50.23 Acute on chronic systolic (congestive) heart failure; J81.0 Acute pulmonary edema; N17.9 Acute kidney failure, unspecified; E46 Unspecified protein-calorie malnutrition; F15.10 Other stimulant abuse, uncomplicated; E87.6 Hypokalemia; I16.0 Hypertensive urgency; F17.210 Nicotine dependence, cigarettes, uncomplicated; M54.30 Sciatica, unspecified side; R79.89 Other specified abnormal findings of blood chemistry; R29.898 Other symptoms and signs involving the musculoskeletal system; F32.A Depression, unspecified; F41.9 Anxiety disorder, unspecified; M51.36 Other intervertebral disc degeneration, lumbar region; Z20.822 Contact with and (suspected) exposure to COVID-19; Z88.5 Allergy status to narcotic agent; Z79.82 Long term (current) use of aspirin; Z79.899 Other long term (current) drug therapy; Z83.3 Family history of diabetes mellitus; Z68.21 Body mass index [BMI] 21.0-21.9, adult
CPT/HCPCS: 36415; 36416; 71045; 71275; 72141; 72148; 78451; 80048; 80053; 80306; 81001; 82805; 83735; 83880; 84145; 84439; 84443; 84484; 85025; 85379; 85652; 86038; 86140; 86225; 86235; 87040; 87081; 87449; 87899; 93005; 93010; 93306; 93970; 94640; 94660; 94760; 96361; 96365; 96367; A9540; J0456; J0696; J1100; J1650; J1885; J1940; J3370; J3475; J3480; J3490; J7050; J7620; Q9967; S0028

== ENCOUNTER 2025-03-16 13:36 | Inpatient (IN) | payer BC, OTHER ==
[2025-03-16 15:20] LABS: #Basophils 0.03 10x3/uL (0.0-0.2); #Eosinophils 0.19 10x3/uL (0.0-0.7); #Monocytes 0.90 10x3/uL (0.11-0.59); #Neutrophils 4.36 10x3/uL (1.40-6.50); %Basophils 0.4 % (0.0-1.0); %Eosinophils 2.5 % (0.0-10.0); %Lymphocytes 27.9 % (21.0-51.0); %Monocytes 11.8 % (0.0-10.0); %Neutrophils 57.3 % (42.0-75.0); Hematocrit 32.1 % (36.0-47.0); Hemoglobin 10.3 g/dL (12.0-16.0); Mean Corpuscular Hemoglobin 27.5 pg (27.0-31.0); Mean Corpuscular Volume 85.6 fL (78.0-98.0); Platelet Count 294 10x3/uL (130-400); Red Blood Cell (RBC) Count 3.75 mill/uL (4.20-5.40); White Blood Cell (WBC) Count 7.61 10x3/uL (4.8-10.8)
[2025-03-16 15:38] LABS: ALT (SGPT) Less than 7 U/L (Less than 34); AST (SGOT) 19 U/L (11-34); Albumin 3.2 g/dL (3.1-4.5); Alkaline Phosphatase 78 U/L (40-110); Anion Gap 12 mmol/L (10-20); BUN (Urea Nitrogen) 15 mg/dL (9.8-20.1); Bilirubin, Total 0.7 mg/dL (0.3-1.2); Calc. Creatinine Clearance 0 mL/min (70-130); Calcium 8.4 mg/dL (7.8-10.44); Carbon Dioxide 22 mmol/L (22-29); Chloride 106 mmol/L (98-107); Globulin 3.4 g/dL (2.4-3.5); Glucose 93 mg/dL (70-105); Potassium 3.4 mmol/L (3.5-5.1); Sodium 137 mmol/L (136-145)
[2025-03-16] MEDS ORDERED: Aspirin Chewable 81 MG TAB ONE (16:41)
[2025-03-16] MEDS ORDERED: Senokot S 8.6-50 MG TAB PO PRN (16:47)
[2025-03-16] MEDS ORDERED: Ondansetron PF 4 MG/2 ML Vial IVP PRN (16:47)
[2025-03-16] MEDS ORDERED: Melatonin 3 MG TAB PO PRN (16:47)
[2025-03-16] MEDS ORDERED: Furosemide 20 MG (2 mL) VIAL ONE (16:53)
[2025-03-16 19:20] VITALS: BMI 23.2
[2025-03-16] MEDS: Aspirin 81 mg Enteric Coated Tablet PO SCH (19:21)
[2025-03-17 05:24] LABS: #Basophils Less than 0.03 10x3/uL (0.0-0.2); #Eosinophils 0.19 10x3/uL (0.0-0.7); #Monocytes 0.77 10x3/uL (0.11-0.59); #Neutrophils 5.71 10x3/uL (1.40-6.50); %Basophils 0.2 % (0.0-1.0); %Eosinophils 2.3 % (0.0-10.0); %Lymphocytes 18.0 % (21.0-51.0); %Monocytes 9.4 % (0.0-10.0); %Neutrophils 69.9 % (42.0-75.0); Hematocrit 30.7 % (36.0-47.0); Hemoglobin 10.1 g/dL (12.0-16.0); Mean Corpuscular Hemoglobin 27.8 pg (27.0-31.0); Mean Corpuscular Volume 84.6 fL (78.0-98.0); Platelet Count 286 10x3/uL (130-400); Red Blood Cell (RBC) Count 3.63 mill/uL (4.20-5.40); White Blood Cell (WBC) Count 8.18 10x3/uL (4.8-10.8)
[2025-03-17 05:40] LABS: Anion Gap 14 mmol/L (10-20); BUN (Urea Nitrogen) 19 mg/dL (9.8-20.1); Calc. Creatinine Clearance 75 mL/min (70-130); Calcium 8.3 mg/dL (7.8-10.44); Carbon Dioxide 23 mmol/L (22-29); Chloride 108 mmol/L (98-107); Glucose 111 mg/dL (70-105); Potassium 3.3 mmol/L (3.5-5.1); Sodium 142 mmol/L (136-145)
[2025-03-17 06:11] LABS: Magnesium 1.8 mg/dL (1.6-2.6)
[2025-03-17] MEDS: Furosemide 40 MG (4 mL) VIAL SLOW IVP SCH (06:16)
[2025-03-17] MEDS: Carvedilol 25 MG TAB PO SCH (08:44)
[2025-03-17] MEDS: Losartan 25 MG TAB PO SCH (08:45)
[2025-03-17] MEDS: Aspirin 81 mg Enteric Coated Tablet PO SCH (08:45)
[2025-03-17] MEDS: Dapagliflozin Propanediol 10 MG TAB PO SCH (08:45)
[2025-03-17] MEDS: Enoxaparin 40 MG (0.4 mL) SYRINGE SC SCH (08:46)
[2025-03-17 12:31] LABS: Cocaine Metabolite Screen Negative (Negative); THC/Cannabinoid Screen PRELIM POSITIVE (Negative); Tricyclic Screen Negative (Negative)
[2025-03-17] MEDS: Acetaminophen 325 MG TAB PO PRN (16:43)
[2025-03-17] MEDS: Sertraline 100 MG TAB PO SCH (20:15)
[2025-03-18 05:58] LABS: #Basophils 0.06 10x3/uL (0.0-0.2); #Eosinophils 0.29 10x3/uL (0.0-0.7); #Monocytes 0.73 10x3/uL (0.11-0.59); #Neutrophils 5.18 10x3/uL (1.40-6.50); %Basophils 0.8 % (0.0-1.0); %Eosinophils 3.6 % (0.0-10.0); %Lymphocytes 20.9 % (21.0-51.0); %Monocytes 9.2 % (0.0-10.0); %Neutrophils 65.1 % (42.0-75.0); Hematocrit 35.6 % (36.0-47.0); Hemoglobin 11.1 g/dL (12.0-16.0); Mean Corpuscular Hemoglobin 26.8 pg (27.0-31.0); Mean Corpuscular Volume 86.0 fL (78.0-98.0); Platelet Count 275 10x3/uL (130-400); Red Blood Cell (RBC) Count 4.14 mill/uL (4.20-5.40); White Blood Cell (WBC) Count 7.95 10x3/uL (4.8-10.8)
[2025-03-18 06:16] LABS: Anion Gap 13 mmol/L (10-20); BUN (Urea Nitrogen) 19 mg/dL (9.8-20.1); Calc. Creatinine Clearance 61 mL/min (70-130); Calcium 8.8 mg/dL (7.8-10.44); Carbon Dioxide 25 mmol/L (22-29); Chloride 104 mmol/L (98-107); Glucose 114 mg/dL (70-105); Potassium 3.7 mmol/L (3.5-5.1); Sodium 138 mmol/L (136-145)
[2025-03-18 11:59] VITALS: BP 119/76; TEMP 97.8
== END 2025-03-18 14:37 | disposition home or self-care (01) | DRG 291 ==
LOC: ERS 13:36 → OBS 16:47 → OBSVTOIN 03-17 13:34
PROVIDERS: ADMIT Internal Medicine; ATTEND Internal Medicine
DX: I11.0 Hypertensive heart disease with heart failure (principal); I50.23 Acute on chronic systolic (congestive) heart failure; F39 Unspecified mood [affective] disorder; Z72.0 Tobacco use; Z88.8 Allergy status to other drugs, medicaments and biological substances; Z98.890 Other specified postprocedural states; Z59.9 Problem related to housing and economic circumstances, unspecified; I42.8 Other cardiomyopathies; F19.90 Other psychoactive substance use, unspecified, uncomplicated; I34.0 Nonrheumatic mitral (valve) insufficiency; Z79.899 Other long term (current) drug therapy; Z79.82 Long term (current) use of aspirin
CPT/HCPCS: 36415; 71045; 80048; 80053; 80306; 83735; 83880; 84484; 85025; 87428; 93005; 93306; 96372; 96374; 96376; G0378; J1650; J1940